=== PATIENT | male | born 1985 | race Caucasian/White ===

== ENCOUNTER 2016-11-19 17:43 | Emergency (ER) | payer OTHER ==
[~2016-11-19] VITALS: Ht 175.3 cm; Wt 122.0 kg
[~2016-11-19 17:43] MED LIST: BUTA1CAP PO; METO10TA PO
[2016-11-19 17:56] VITALS: BP 158/105; PULSE 105; RESP 16; TEMP 99.5; O2SAT 97
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
[2016-11-19] MEDS ORDERED: LIDOCAINE 1%/EPINEPHrine 1:100,000 SOLN 20 ML VIAL INFIL ONE (18:45)
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
[2016-11-19 19:04] LABS: AUTOMATED NEUTROPHIL # 11.7 TH/MM3 (1.8-7.7); BASOPHIL # 0.1 TH/MM3 (0-0.2); BASOPHIL % 0.6 % (0.0-2.0); EOSINOPHIL # 0.1 TH/MM3 (0-0.4); HEMATOCRIT 42.7 % (39.0-51.0); LYMPH % 12.7 % (9.0-44.0); LYMPHOCYTE # 1.9 TH/MM3 (1.0-4.8); MEAN CELL VOLUME 63.5 FL (80.0-100.0); MEAN CORPUSCULAR HEMOGLOBIN 19.3 PG (27.0-34.0); MEAN CORPUSCULAR HGB CONC 30.4 % (32.0-36.0); MONO % 5.9 % (0.0-8.0); NEUT % 79.8 % (16.0-70.0); PLATELET COUNT 260 TH/MM3 (150-450); RED BLOOD COUNT 6.72 MIL/MM3 (4.50-5.90); RED CELL DISTRIBUTION WIDTH 16.5 % (11.6-17.2); WHITE BLOOD COUNT 14.7 TH/MM3 (4.0-11.0)
[2016-11-19 19:05] LABS: HEMO FLAGS AUTO DIFF
[2016-11-19 19:10] LABS: POTASSIUM 3.9 MEQ/L (3.5-5.1)
[2016-11-19 19:13] LABS: BICARBONATE 31.7 MEQ/L (21.0-32.0)
[2016-11-19 19:23] LABS: PLATELET ESTIMATE SMEAR NORMAL (NORMAL); PLATELET MORPHOLOGY NORMAL (NORMAL); SCAN/DIFF AUTO DIFF CONFIRMED
[2016-11-19] MEDS ORDERED: IBUP800T23 PO (19:43)
[2016-11-19] MEDS ORDERED: CLIN1CAP6 PO (19:43)
[2016-11-19] MEDS ORDERED: LEVA500T PO (19:43)
[2016-11-19] MEDS ORDERED: CLINDAMYCIN 150 MG CAP PO ONE (19:45)
[2016-11-19] MEDS ORDERED: LEVOFLOXACIN 750 MG TAB PO ONE (19:45)
[2016-11-19] MEDS ORDERED: IBUPROFEN 600 MG TAB PO ONE (19:45)
== END 2016-11-19 19:55 | disposition home or self-care (01) ==
LOC: PHEFT 17:43
DX: S81.012A Laceration without foreign body, left knee, initial encounter (principal); X99.1XXA Assault by knife, initial encounter; Y93.9 Activity, unspecified; Y92.810 Car as the place of occurrence of the external cause; Y99.9 Unspecified external cause status
CPT/HCPCS: 20610; 73564; 80048; 85025; 85652; 86140; 87070; 87205

== ENCOUNTER 2017-11-02 18:01 | Emergency (ER) | payer OTHER ==
[~2017-11-02] VITALS: Ht 175.3 cm; Wt 122.0 kg
[~2017-11-02 18:01] MED LIST changes: -BUTA1CAP PO; +CLIN300C5 PO; +IBUP1TAB7 PO; +LEVA500T PO; -METO10TA PO
[2017-11-02 18:07] VITALS: BP 148/79; PULSE 98; RESP 18; TEMP 98.5; O2SAT 98
[2017-11-02] MEDS ORDERED: NAPR250T4 PO (18:22)
[2017-11-02] MEDS ORDERED: BACT800T5 PO (18:50)
[2017-11-02] MEDS ORDERED: TRAM50 PO (18:50)
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
== END 2017-11-02 19:22 | disposition home or self-care (01) ==
LOC: PHEFT 18:01
DX: L02.31 Cutaneous abscess of buttock (principal); F17.290 Nicotine dependence, other tobacco product, uncomplicated; Z88.5 Allergy status to narcotic agent; Z88.1 Allergy status to other antibiotic agents; Z79.899 Other long term (current) drug therapy
CPT/HCPCS: 10060